=== PATIENT | female | born 1970 | race Caucasian/White ===

== ENCOUNTER 2018-01-09 11:24 | Day surgery (SDC) | payer BC ==
[2018-01-09] MEDS ORDERED: BUDE6HFA INH (11:50)
[2018-01-09] MEDS ORDERED: ALBU90OI INH (11:52)
[2018-01-09] MEDS ORDERED: Voltaren100 GM TD (11:53)
[2018-01-09] MEDS ORDERED: ZYRTEC10 M1 PO (11:54)
[2018-01-09] MEDS ORDERED: CLOB.05TO TOP (11:55)
[2018-01-09] MEDS ORDERED: SUMA25 PO ×2 (11:56→12:03)
[2018-01-09] MEDS ORDERED: TYLECOD3 PO (11:58)
[2018-01-09] MEDS ORDERED: Nuvaring Vagin1 EACH VAG (12:00)
[2018-01-09] MEDS ORDERED: OXYC5 PO (12:01)
== END 2018-01-09 23:06 | disposition home or self-care (01) ==
LOC: ORSCMMR 11:24
PROVIDERS: Orthopaedic Surgery
PROC: 0LQP0ZZ Repair Left Lower Leg Tendon, Open Approach (ICD-10-PCS; principal; 2018-01-09 12:30)
DX: S86.022A Laceration of left Achilles tendon, initial encounter (principal); J45.909 Unspecified asthma, uncomplicated; Z79.899 Other long term (current) drug therapy
CPT/HCPCS: J0690; J2250; J2405; J2710; J2765; J3010; J7120

== ENCOUNTER → 2018-02-06 | Outpatient (CLI) | payer BC ==
[~2018-02-06] MED LIST: ALBU90OI INH; BUDE6HFA INH; CLOB.05TO TOP; Nuvaring Vagin1 EACH VAG; OXYC5 PO; SUMA25 PO; TYLECOD3 PO; Voltaren100 GM TD; ZYRTEC10 M1 PO
== END | disposition home or self-care (01) ==
LOC: LAB SHORT 16:03 → LAB 16:03
DX: L08.9 Local infection of the skin and subcutaneous tissue, unspecified (principal)
CPT/HCPCS: 87070; 87075; 87077; 87186; 87205

== ENCOUNTER 2018-02-16 12:07 | Day surgery (SDC) | payer BC ==
[2018-02-16] MEDS ORDERED: CIPR500 PO (12:31)
[2018-02-16] MEDS ORDERED: FLONASE ALLERG9.9 ML INH (12:32)
== END 2018-02-16 22:43 | disposition home or self-care (01) ==
LOC: ORSCMMR 12:07
PROVIDERS: Orthopaedic Surgery
PROC: 0LBP0ZZ Excision of Left Lower Leg Tendon, Open Approach (ICD-10-PCS; principal; 2018-02-16 12:30)
DX: T81.4XXA Infection following a procedure, initial encounter (principal); S86.012A Strain of left Achilles tendon, initial encounter; J45.909 Unspecified asthma, uncomplicated; Z79.899 Other long term (current) drug therapy
CPT/HCPCS: 87070; 87075; 87077; 87186; 87205; J0696; J1885; J2250; J2370; J2405; J3010; J7120

== ENCOUNTER → 2018-02-26 | Outpatient (CLI) | payer BC ==
[~2018-02-26] MED LIST changes: +CIPR500 PO; +FLONASE ALLERG9.9 ML INH
== END ==
LOC: LAB 12:13 → LAB SHORT 12:13
DX: T14.8XXA Other injury of unspecified body region, initial encounter (principal); L08.9 Local infection of the skin and subcutaneous tissue, unspecified
CPT/HCPCS: 87070; 87205

== ENCOUNTER → 2018-03-11 | Outpatient (CLI) | payer BC | END | disposition home or self-care (01) | LOC: LAB SHORT 09:21 → PLD 09:21 | DX: D22.72 Melanocytic nevi of left lower limb, including hip (principal); D22.5 Melanocytic nevi of trunk | CPT/HCPCS: 88305 ==

== ENCOUNTER → 2021-01-22 | Outpatient (CLI) | payer BC | LOC: LAB SHORT 11:38 → PLD 11:38 | DX: D48.5 Neoplasm of uncertain behavior of skin (principal); L11.1 Transient acantholytic dermatosis [Grover]; Z88.5 Allergy status to narcotic agent | CPT/HCPCS: 88305 ==

== ENCOUNTER → 2021-08-02 | Outpatient (CLI) | payer BC ==
[2021-08-06 17:08] LABS: HPV 16 Negative (Negative); HPV 18 Negative (Negative); HPV OTHER HR TYPES Negative (Negative)
== END | disposition home or self-care (01) ==
LOC: LAB 17:39 → LAB SHORT 17:39
PROVIDERS: Obstetrics & Gynecology
DX: Z12.4 Encounter for screening for malignant neoplasm of cervix (principal)
CPT/HCPCS: 87624; G0123

== ENCOUNTER 2022-10-11 08:49 | Day surgery (SDC) | payer OTHER ==
[~2022-10-11] VITALS: Ht 167.6 cm; Wt 93.3 kg
[2022-10-11] MEDS ORDERED: NARATRIPTAN HCL1 MG (09:23)
[2022-10-11] MEDS ORDERED: CALCIPOTRIENE60 G1 (09:23)
[2022-10-11] MEDS ORDERED: MONT4 (09:23)
[2022-10-11] MEDS ORDERED: THYR60 (09:24)
[2022-10-11] MEDS ORDERED: TOPI50 (09:24)
[2022-10-11] MEDS ORDERED: UBRELVY50 MG (09:25)
[2022-10-11] MEDS ORDERED: Triamcinolone A15 GM (09:25)
== END 2022-10-11 11:35 | disposition home or self-care (01) ==
LOC: ORSCSDS 08:49
PROVIDERS: Internal Medicine Gastroenterology
PROC: 0DB68ZX Excision of Stomach, Via Natural or Artificial Opening Endoscopic, Diagnostic (ICD-10-PCS; principal; 2022-10-11 10:00)
PROC: 0D758ZZ Dilation of Esophagus, Via Natural or Artificial Opening Endoscopic (ICD-10-PCS; principal; 2022-10-11 10:00)
PROC: 0DB58ZX Excision of Esophagus, Via Natural or Artificial Opening Endoscopic, Diagnostic (ICD-10-PCS; principal; 2022-10-11 10:00)
PROC: 0DBK8ZX Excision of Ascending Colon, Via Natural or Artificial Opening Endoscopic, Diagnostic (ICD-10-PCS; principal; 2022-10-11 10:00)
DX: Z12.11 Encounter for screening for malignant neoplasm of colon (principal); Z86.010 Personal history of colon polyps; R13.14 Dysphagia, pharyngoesophageal phase; D12.2 Benign neoplasm of ascending colon; K21.00 Gastro-esophageal reflux disease with esophagitis, without bleeding; E06.3 Autoimmune thyroiditis; K57.30 Diverticulosis of large intestine without perforation or abscess without bleeding; K22.2 Esophageal obstruction; K29.50 Unspecified chronic gastritis without bleeding; E66.9 Obesity, unspecified; Z68.32 Body mass index [BMI] 32.0-32.9, adult; Z79.899 Other long term (current) drug therapy
CPT/HCPCS: 88305; J2704; J7120

== ENCOUNTER 2022-12-30 20:44 | Emergency (ER) | payer OTHER ==
[~2022-12-30] VITALS: Ht 167.6 cm; Wt 88.5 kg
[~2022-12-30 20:44] MED LIST changes: +CALCIPOTRIENE60 G1; +MONT4 PO; +NARATRIPTAN HCL1 MG; +THYR60; +TOPI50; +Triamcinolone A15 GM; +UBRELVY50 MG
== END 2022-12-30 23:20 | disposition home or self-care (01) ==
LOC: ER 20:44
DX: L25.9 Unspecified contact dermatitis, unspecified cause (principal); Z88.5 Allergy status to narcotic agent; Z79.899 Other long term (current) drug therapy
CPT/HCPCS: 99282; J3301